=== PATIENT | female | born 1955 | race Caucasian/White ===

== ENCOUNTER 2016-05-05 10:01 | Observation (INO) ==
--- NOTE | 2016-05-05 10:03 | Emergency Department Note ---
Disposition Clinical Impression: Dehydration, Postural dizziness with near syncope Intractable vomiting with nausea Qualifiers: Vomiting type: unspecified Qualified Code(s): R11.2 - Nausea with vomiting, unspecified Left lower lobe pneumonia Qualifiers: Pneumonia type: due to unspecified organism Qualified Code(s): J18.1 - Lobar pneumonia, unspecified organism Disposition: Admitted As Inpatient Condition: Good Referrals: Kathy Horowitz, DISTRICT SALES LEADER [Primary Care Provider] - Forms: ED Satisfaction Letter Nausea/Vomiting/Diarrhea HPI - General Chief complaint: ED Nausea/Vomiting/Diarrhea Stated complaint: "can't keep nothing down" Time Seen by Provider: 05/05/16 10:08 Source: patient, family Mode of arrival: private vehicle Limitations: no limitations Nursing Notes Reviewed: Yes Vital Signs Reviewed: Yes - History of Present Illness HPI Narrative: The patient was initially seen May 01 for upper respiratory infection. She did have one episode of diarrhea and no nausea or vomiting. She had influenza swab that was negative and a chest x-ray demonstrating a possible left lower lobe infiltrate. She was started on Augmentin for infection and Bromfed. She was present with a family member who also has had respiratory infection who is placed on Augmentin and was having diarrhea. In the past few days patient has had persistent nausea, vomiting with subsequent weakness and dizziness. She has presented back to the ER by private auto and has been brought in to the department in a wheelchair. The patient specifically reports that she has had nausea and vomiting for about 3 days and has been bringing up water and bile. Denies any blood in emesis. She states she has not been able to tolerate significant oral intake or take her medicines. She denies diarrhea other than 1 episode today or 2 ago. She denies abdominal pain does report severe nausea. She states she is still having fevers, chills, cough with some shortness of breath. The cough is productive at this time. She denies any discomfort with urination. She denies that anybody else the family has had vomiting illness. She relates this morning she had to be helped suggesting a bathroom for fear of passing out and she therefore has been brought in for evaluation. She has not had any type of syncope or fall. Pt Subjective Complaint: nausea, vomiting Onset (ago): day(s) Description of emesis: food contents Description of Diarrhea: water Associated Abdominal Pain: No Severity: none Severity scale (1-10): 0 Worsens with: eating Context: sick contacts, recent antibiotic use Associated symptoms: Reports: cough, fever/chills, loss of appetite, malaise, nausea/vomiting, shortness of breath, weakness. Denies: myalgias, chest pain, diaphoresis, headaches, rash, dysuria, syncope - Related Data Home Medications Medication Instructions Recorded Confirmed Aspirin [Adult Low Dose Aspirin EC] 1 tab PO DAILY 03/13/15 05/01/16 Atenolol [Tenormin] 100 mg PO DAILY 03/13/15 05/01/16 Lovastatin [Mevacor] 20 mg PO HS 03/13/15 05/01/16 Metformin [Glucophage] 500 mg PO DAILY 03/13/15 05/01/16 Mirtazapine [Remeron] 15 mg PO HS 03/13/15 05/01/16 Quetiapine Fumarate [Seroquel] 100 mg PO QPM 03/13/15 05/01/16 Amlodipine Besylate 10 mg PO DAILY 01/02/16 05/01/16 Lovastatin 20 mg PO DAILY 01/02/16 05/01/16 Ranitidine HCl [Zantac] 150 mg PO BID 01/02/16 05/01/16 Previous Rx's Medication Instructions Recorded Lisinopril-HCTZ 20-12.5 [Prinzide 1 each PO DAILY 30 Days 03/14/15 20-12.5] Potassium Chloride 10 meq PO DAILY #30 tab.er.prt 03/14/15 Ciprofloxacin HCl [Cipro] 500 mg PO BID #14 tablet 01/02/16 Amoxicillin/Clavulanate [Augmentin] 875 mg PO BIDWM #20 tablet 05/01/16 D-Methorphan Hb/P-Epd HCl/Bpm 10 ml PO Q6-8H PRN #240 ml 05/01/16 [Bromfed Dm Cough Syrup] Allergies Allergy/AdvReac Type Severity Reaction Status Date / Time guaifenesin [From Mucinex] AdvReac Rash Verified 01/02/16 11:53 All systems ED: reviewed and negative except as stated. Past Medical History - Past Medical History Attestation: Yes The following information was validated with the patient. Source: patient, old records reviewed, nursing notes reviewed Medical history: Reports: arthritis, diabetes, fibromyalgia, GERD, hyperlipidemia, hypertension, other (Restless leg syndrome) Surgical history: Reports: appendectomy, cholecystectomy Psychiatric history: Reports: anxiety, depression QUANTITY SURVEYOR history: Reports: no QUANTITY SURVEYOR history - Social History Smoking Status: Never smoker Smokeless Tobacco Status: No Alcohol use: Reports: none Drug use: Reports: none Physical Exam - General Limitations: no limitations General appearance: alert, anxious - Head Head exam: atraumatic, normocephalic, normal inspection - Eye Eye exam: Present: normal appearance, PERRL, EOMI. Absent: scleral icterus, conjunctival injection - ENT ENT exam: normal exam, normal oropharynx, mucous membranes moist - Neck Neck exam: Present: normal inspection, full ROM, trachea midline - Chest Chest inspection: Present: normal inspection, symmetric chest wall rise. Absent : tenderness - Respiratory Respiratory exam: Present: normal lung sounds bilaterally. Absent: respiratory distress, wheezes, prolonged expiratory phase - Cardiovascular Cardiovascular exam: Present: regular rate, normal rhythm, normal heart sounds - Abdominal Exam Abdominal exam: Present: soft, Non-Tender, normal bowel sounds. Absent: tenderness, distention, guarding, rebound, rigidity - Extremities Exam Extremities exam: Present: normal inspection, full ROM, normal capillary refill. Absent: tenderness, pedal edema - Expanded Lower Extremity Exam Neurovascular/Tendon exam: Present: normal capillary refill. Absent: motor deficit, sensory deficit, tendon deficit Gait: not tested/not observed - Back Exam Back exam: Present: normal inspection, full ROM. Absent: tenderness, CVA tenderness (R), CVA tenderness (L) - Neurological Exam Neurological exam: Present: alert, oriented X3 - Psychiatric Psychiatric exam: Present: normal affect, anxious - Skin Skin exam: Present: warm, dry, intact, pallor. Absent: diaphoresis Course Course Narrative: 1100: There has been discussed with the patient and family. I subsequently contacted Dr. Ervin who is agreeable with observation of this patient to continue IV antiemetics, antibiotics and IV rehydration. Verbal orders were obtained for her admission. I have contacted to [facility] bed management for bed placement into bed 51. Vital Signs Temperature 98.8 F 05/05/16 10:06 Pulse Rate 79 05/05/16 10:06 Respiratory Rate 18 05/05/16 10:06 Blood Pressure 73/55 05/05/16 10:06 O2 Sat by Pulse Oximetry 99 05/05/16 10:06 Temperature 98.8 F 05/05/16 10:13 Pulse Rate 79 05/05/16 10:13 Respiratory Rate 18 05/05/16 10:13 Blood Pressure 73/55 05/05/16 10:13 O2 Sat by Pulse Oximetry 99 05/05/16 10:13 Oxygen Delivery Oxygen Delivery Room Air Nausea/Vomiting/Diarrhea - Differential Diagnosis Likely: food poisoning, gastroenteritis, dehydration - Medical Records Medical records reviewed: Yes I reviewed the patient's medical records. - Lab Data Lab results reviewed: Yes I reviewed the patient's lab results. Lab results narrative: The patient's 2 prior WBCs have been in the range of 3-4. The patient's usual creatinine is about 0.75. Result diagrams: 05/05/16 10:30 05/05/16 10:30 Lab Results 05/05/16 05/05/16 Range/Units 10:30 10:30 WBC 2.9 L (4.3-11.1) K/mcL RBC 4.81 (3.82-4.97) M/mcL Hgb 13.4 (11.5-15.4) g/dL Hct 39.9 (35.3-44.9) % MCV 83.0 (83.0-100.0) fL MCH 27.9 L (28.0-33.3) pg MCHC 33.6 (31.6-35.5) g/dL RDW 14.2 (11.5-14.5) % Plt Count 204 (140-400) K/mcL MPV 10.0 (9.4-12.4) fL Immature Gran % 0.0 (0-4) % Seg Neutrophils % 65.5 % Lymphocytes % 22.1 % Monocytes % 12.1 % Eosinophils % 0.0 % Basophils % 0.3 % Neutrophils # 1.9 (1.6-8.9) K/mcL Lymphocytes # 0.6 (0.6-4.6) K/mcL Monocytes # 0.4 (0.0-1.3) K/mcL Eosinophils # 0.0 (0.0-0.6) K/mcL Basophils # 0.0 (0.0-0.2) K/mcL Sodium 131 L (136-145) mEq/L Potassium 3.7 (3.5-4.5) mEq/L Chloride 96 L (98-109) mEq/L Carbon Dioxide 21 (19-29) mEq/L BUN 12 (7-20) mg/dL Creatinine 1.20 H (0.57-1.11) mg/dL Est GFR ( Amer) 55 L (> 60) Est GFR (Non-Af Amer) 46 L (> 60) BUN/Creatinine Ratio 10 (6-26) Glucose 156 H (70-99) mg/dL Calculated Osmolality 275 L (280-300) Calcium 9.1 (8.6-10.8) mg/dL - Radiology Data Radiology results reviewed: Yes I reviewed the patient's radiology results. Single view chest x-ray is performed. This does not demonstrate evidence for infiltrate, effusion, pneumothorax, foreign body or heart failure. The cardiac silhouette is normal. I do not see abnormality to the osseous structures of the chest. This is on my interpretation. Impressions Chest X-Ray 05/05/16 10:12 IMPRESSION: Minimal streaky left basilar opacity may relate to atelectasis or infiltrate. D/ / 05/05/2016 10:37:52 Alden Mandel MD / [email or web address] Interpreting Provider: Alden Mandel MD
[2016-05-05] MEDS ORDERED: Ondansetron 4 MG/2 ML VIAL IVP ONE (10:12)
[2016-05-05] MEDS ORDERED: 0.9 % Sodium Chloride 1,000 ML IVC ONE (10:12)
[2016-05-05 10:40] LABS: Basophils % 0.3 %; Hematocrit 39.9 % (35.3-44.9); Hemoglobin 13.4 g/dL (11.5-15.4); Lymphocytes # 0.6 K/mcL (0.6-4.6); Lymphocytes % 22.1 %; Mean Corpuscular HGB Conc 33.6 g/dL (31.6-35.5); Mean Corpuscular Hemoglobin 27.9 pg (28.0-33.3); Monocytes # 0.4 K/mcL (0.0-1.3); Monocytes % 12.1 %; Neutrophils # 1.9 K/mcL (1.6-8.9); Platelet Count 204 K/mcL (140-400); Red Blood Count 4.81 M/mcL (3.82-4.97); Red Cell Distribution Width 14.2 % (11.5-14.5); Segmented Neutrophils % 65.5 %
[2016-05-05] MEDS ORDERED: Levofloxacin 750 MG/150 ML 750 MG/150 ML BAG IVPB SCH ×2 (10:45→12:00)
[2016-05-05 10:55] LABS: Calcium 9.1 mg/dL (8.6-10.8); Potassium 3.7 mEq/L (3.5-4.5)
[2016-05-05] MEDS ORDERED: 0.9 % Sodium Chloride 1,000 ML IVC SCH (11:31)
[2016-05-05] MEDS ORDERED: Naloxone 0.4 MG/ML INJ IVP PRN (11:31)
[2016-05-05] MEDS ORDERED: Albuterol 2.5 MG/3 ML NEBULIZER IH PRN (11:31)
[2016-05-05] MEDS ORDERED: Ondansetron 4 MG/2 ML VIAL IVP PRN ×2 (11:31→17:04)
[2016-05-05] MEDS ORDERED: Acetaminophen 325 MG TABLET PO PRN (11:31)
[2016-05-05] MEDS: Mag Hydrox/Al Hydrox/Simeth 30 ML UDC PO PRN ×2 (15:18→22:14)
[2016-05-05] MEDS ORDERED: Ipratropium/Albuterol Neb 3 ML IH SCH (16:00)
--- NOTE | 2016-05-05 16:53 | Internal Med History&Physical ---
Date of Encounter: 05/05/16 Time of Encounter: 16:15 Assessment and Plan (1) Left lower lobe pneumonia Current visit: Yes Status: Acute We will order chest CT to further evaluate. We will also order pro-calcitonin level. Continue IV Levaquin. Add lactobacillus. Qualifiers: Pneumonia type: due to unspecified organism Qualified Code(s): J18.1 - Lobar pneumonia, unspecified organism (2) Azotemia Current visit: Yes Status: Acute Give IV fluids and recheck labs in a.m. (3) Intractable vomiting with nausea Current visit: Yes Status: Acute Suspect viral gastroenteritis. We will give IV fluids and prn anti-emetics. Qualifiers: Vomiting type: unspecified Qualified Code(s): R11.2 - Nausea with vomiting , unspecified Internal Medicine - H&P: HPI Chief complaint: Vomiting and diarrhea Admitted From: Home Plans for Post Hospital Care: Home History of present illness: Ms. Braswell is a 60 year old female who came to emergency room stating she had multiple episodes of vomiting over the past 2 days. She began to feel lightheaded and dizzy. She reports diarrhea has also been present for 2 days but seemed to have lessened the evening of May 04. She denied melena hematochezia hematemesis or abdominal pain. She was evaluated in emergency room and found to have hypotension. She responded to IV fluids and stabilized. She was admitted to [facility] floor for ongoing care needs. Her GI history is pertinent for GERD symptoms in the past but these are generally well controlled on medication. She denies disorders of her liver or exocrine pancreas. She has had cholecystectomy. Past Med Surg Social Fam HX - Past Medical History Medical history: arthritis, diabetes, fibromyalgia, GERD, hyperlipidemia, hypertension, other Psychiatric history: anxiety, depression - Past Surgical History Surgical History: appendectomy, cholecystectomy - Social History Smoking Status: Never smoker Smokeless Tobacco Status: No Alcohol use: none Drug use: none - Family History Father Adopted: No Living Status: Hx Family Cardiac Disorders: Yes Hx Family Respiratory Disorders: No Hx Family Cancer: Yes Hx Family GI Disorders: No Hx Family Endocrine Disorder: No Hx Family Neuromuscular Disorders: No Hx Family Neurologic Disorders: No Hx Family HEENT Disorders: No Hx Family Autoimmune Disorders: No Internal Medicine - H&P: Meds Aspirin [Adult Low Dose Aspirin EC] 1 tab PO DAILY 03/13/15 [History] Atenolol [Tenormin] 100 mg PO DAILY 03/13/15 [History] Lovastatin [Mevacor] 20 mg PO HS 03/13/15 [History] Metformin [Glucophage] 500 mg PO DAILY 03/13/15 [History] Mirtazapine [Remeron] 15 mg PO HS 03/13/15 [History] Quetiapine Fumarate [Seroquel] 100 mg PO QPM 03/13/15 [History] Lisinopril-HCTZ 20-12.5 [Prinzide 20-12.5] 1 each PO DAILY 30 Days 03/14/15 [Rx] Potassium Chloride 10 meq PO DAILY #30 tab.er.prt 03/14/15 [Rx] Ciprofloxacin HCl [Cipro] 500 mg PO BID #14 tablet 01/02/16 [Rx] Lovastatin 20 mg PO DAILY 01/02/16 [History] Ranitidine HCl [Zantac] 150 mg PO BID 01/02/16 [History] Amoxicillin/Clavulanate [Augmentin] 875 mg PO BIDWM #20 tablet 05/01/16 [Rx] Allergies guaifenesin [From Mucinex] Adverse Reaction (Verified 01/02/16 11:53) Rash All Systems PM: A 10-system review of systems was performed and is negative for pertinent findings except as documented above in the HPI. Review of systems: Gen.: Her weight has increased from 67.912 kg on 03/14/2015 to 83.461 kg at present Cardiovascular: She has a history of hypertension but denies CA heart failure angina DVT or pulmonary embolus. She thinks she had an exercise stress test approximately 15-20 years ago. She denies other cardiac studies. Respiratory: She is a lifelong nonsmoker and has no known chronic lung disease GI: As per history of present illness : She denies hematuria dysuria or kidney stones Neurologic: She was hospitalized approximately one year ago at [facility] with syncope. She has had no further episodes. She denies large distribution strokes or seizures. Endocrine: She has been diagnosed with DM 2. Hemoglobin A1c was 6.4% on 2013. She has hyperlipidemia but no known thyroid disease Hematology/oncology: She denies blood disorders cancers or anemia Psychiatric: She has anxiety and depression and follows at mental health clinic. She denies other psychiatric diagnosis. Musk skeletal: She has occasional pain in her arms. No significant DJD or gout or other bone joint or muscle problems. - Constitutional Vitals: Temp Pulse Resp BP Pulse Ox 98.2 F 74 16 128/78 98 05/05/16 14:51 05/05/16 14:51 05/05/16 14:51 05/05/16 14:51 05/05/16 14:51 Exam: Gen.: She is a well-developed well-nourished female resting in bed who appears in minimal distress at present time. HEENT: Head is atraumatic and normocephalic. Eyes: EOMI. There is no scleral icterus. Mouth: Mucosa is moist. Neck: Supple and nontender. There is no thyromegaly or adenopathy noted. Heart: Regular without murmurs gallops or ectopics. Lungs: No wheezes or crackles are heard. Abdomen: Bowel sounds are present. Abdomen is nontender to palpation. No masses or guarding are noted. Extremities: There is no cyanosis edema or clubbing noted. Dorsalis pedis and posttibial pulses are 1-2 over 2 bilaterally. Neurologic: Mental status: She is talkative and a good historian. Cranial nerves: Smile is symmetric. Forehead wrinkles bilaterally. Tongue protrudes midline. EOMI. Motor: There is no pronator drift. Cerebellar: Finger to nose is intact bilaterally. Skin: Warm and dry Internal Med - H&P Results - Labs CBC & Chem 7: 05/05/16 10:30 05/05/16 10:30
[2016-05-05] MEDS ORDERED: *HR* Promethazine 25 MG/ML VIAL IVP PRN (17:01)
[2016-05-05] MEDS: Lactobacillus 1 EACH CAP.SPRINK PO SCH (22:14)
[2016-05-06 05:54] LABS: Basophils % 0.3 %; Hematocrit 35.7 % (35.3-44.9); Hemoglobin 11.7 g/dL (11.5-15.4); Lymphocytes % 32.8 %; Mean Corpuscular HGB Conc 32.8 g/dL (31.6-35.5); Mean Corpuscular Hemoglobin 27.5 pg (28.0-33.3); Mean Platelet Volume 10.2 fL (9.4-12.4); Monocytes # 0.5 K/mcL (0.0-1.3); Monocytes % 17.1 %; Neutrophils # 1.4 K/mcL (1.6-8.9); Platelet Count 197 K/mcL (140-400); Red Blood Count 4.25 M/mcL (3.82-4.97); Red Cell Distribution Width 14.6 % (11.5-14.5); Segmented Neutrophils % 49.8 %
[2016-05-06 06:17] LABS: Alanine Aminotransferase 19 Units/L (0-55); Albumin 3.5 g/dL (3.5-5.0); Albumin/Globulin Ratio 1.3 (1.1-2.2); Alkaline Phosphatase 31 Units/L (38-126); Aspartate Amino Transferase 22 Units/L (5-34); BUN/Creatinine Ratio 10 (6-26); Bilirubin,Total 0.2 mg/dL (0.2-1.2); Blood Urea Nitrogen 8 mg/dL (7-20); Carbon Dioxide 23 mEq/L (19-29); Chloride 104 mEq/L (98-109); Globulin 2.6 g/dL (2.4-3.5); Glucose 103 mg/dL (70-99); Magnesium 2.2 mg/dL (1.6-2.6); Osmolality,Calculated 279 (280-300); Potassium 3.8 mEq/L (3.5-4.5); Sodium 135 mEq/L (136-145); Total Protein 6.1 g/dL (6.0-8.3); eGFR For African Americans > 60 (> 60); eGFR For Non-African Americans > 60 (> 60)
[2016-05-06] MEDS ORDERED: Pantoprazole 40 MG VIAL IVP SCH (09:00)
[2016-05-06] MEDS: Lactobacillus 1 EACH CAP.SPRINK PO SCH (09:05)
--- NOTE | 2016-05-06 10:06 | Internal Med Progress Note ---
Date of Encounter: 05/06/16 Time of Encounter: 09:55 - Assessment and plan (1) Left lower lobe pneumonia Current Visit: Yes Status: Acute Assessment and plan: May 06. Chest CT showed no evidence of pneumonia. We will discontinue antibiotics and lactobacillus. Qualifiers: Pneumonia type: due to unspecified organism Qualified Code(s): J18.1 - Lobar pneumonia, unspecified organism (2) Azotemia Current Visit: Yes Status: Acute Assessment and plan: May 06. Resolved. We will discontinue IV fluids. (3) Intractable vomiting with nausea Current Visit: Yes Status: Acute Assessment and plan: May 06. Probable viral gastroenteritis. Improved now. Anticipate discharge home tomorrow if stable. Qualifiers: Vomiting type: unspecified Qualified Code(s): R11.2 - Nausea with vomiting , unspecified - Subjective Interval history: May 06. She has no new complaints and states her vomiting has lessened. - Constitutional Vitals: Temp Pulse Resp BP Pulse Ox 99.2 F 73 17 126/83 95 05/06/16 07:16 05/06/16 07:16 05/06/16 07:16 05/06/16 07:16 05/06/16 07:16 Exam: She is resting comfortably in bed. Her affect is bright and cheerful. I reviewed her medications and lab results and CT report. Internal Medicine: Result - Labs CBC & Chem 7: 05/06/16 05:18 05/06/16 05:18 Labs: Short CBC 05/06/16 Range/Units 05:18 WBC 2.9 L (4.3-11.1) K/mcL Hgb 11.7 D (11.5-15.4) g/dL Hct 35.7 (35.3-44.9) % Plt Count 197 (140-400) K/mcL Neutrophils # 1.4 L (1.6-8.9) K/mcL BMP 05/06/16 05:18 Sodium 135 L Potassium 3.8 Chloride 104 Carbon Dioxide 23 BUN 8 Creatinine 0.80 Glucose 103 H Calcium 8.0 L Liver Function 05/06/16 Range/Units 05:18 Total Bilirubin 0.2 (0.2-1.2) mg/dL AST 22 (5-34) Units/L ALT 19 (0-55) Units/L Alkaline Phosphatase 31 L (38-126) Units/L Albumin 3.5 (3.5-5.0) g/dL - Impressions Impressions Chest CT 05/05/16 17:01 IMPRESSION: No acute process within the chest. No pneumonia is appreciated. D/ / 05/05/2016 19:39:26 Shiraz Kirkland MD / mili Interpreting Provider: Shiraz Kirkland MD - VTE Documentation of Mechanical Device: Graduated compression elastic hosiery Consult Discharge Plan - Plan Referrals: Kathy Horowitz, TRACK SUPERVISOR [Primary Care Provider] - 1 week
[2016-05-06] MEDS: Lisinopril 20 MG TABLET PO SCH (18:32)
[2016-05-07 05:28] LABS: Basophils % 0.4 %; Hematocrit 37.8 % (35.3-44.9); Hemoglobin 12.3 g/dL (11.5-15.4); Immature Granulocytes % 0.4 % (0-4); Lymphocytes # 0.9 K/mcL (0.6-4.6); Lymphocytes % 35.1 %; Mean Corpuscular HGB Conc 32.5 g/dL (31.6-35.5); Mean Corpuscular Hemoglobin 27.4 pg (28.0-33.3); Mean Corpuscular Volume 84.2 fL (83.0-100.0); Mean Platelet Volume 10.1 fL (9.4-12.4); Monocytes # 0.4 K/mcL (0.0-1.3); Monocytes % 15.8 %; Neutrophils # 1.3 K/mcL (1.6-8.9); Platelet Count 193 K/mcL (140-400); Red Blood Count 4.49 M/mcL (3.82-4.97); Red Cell Distribution Width 14.4 % (11.5-14.5); Segmented Neutrophils % 48.3 %
[2016-05-07 05:46] LABS: BUN/Creatinine Ratio 9 (6-26); Blood Urea Nitrogen 7 mg/dL (7-20); Calcium 8.5 mg/dL (8.6-10.8); Carbon Dioxide 23 mEq/L (19-29); Chloride 102 mEq/L (98-109); Glucose 133 mg/dL (70-99); Osmolality,Calculated 280 (280-300); Potassium 3.9 mEq/L (3.5-4.5); Sodium 135 mEq/L (136-145); eGFR For African Americans > 60 (> 60); eGFR For Non-African Americans > 60 (> 60)
[2016-05-07 06:57] VITALS: BP 162/95
[2016-05-07] MEDS: Lisinopril 20 MG TABLET PO SCH (07:34)
--- NOTE | 2016-05-07 10:07 | Discharge Summary ---
Date of Encounter: 05/07/16 Time of Encounter: 09:55 - Discharge Diagnosis (1) Acute bronchitis Priority: Primary Status: Acute Qualifiers: Bronchitis organism: unspecified organism Qualified Code(s): J20.9 - Acute bronchitis, unspecified (2) Azotemia Priority: Secondary Status: Resolved (3) Intractable vomiting with nausea Priority: Secondary Status: Resolved Qualifiers: Vomiting type: unspecified Qualified Code(s): R11.2 - Nausea with vomiting , unspecified - Discharge Medications Prescriptions: Lisinopril [Zestril] 40 mg PO DAILY #30 tablet Home Medications: Aspirin [Adult Low Dose Aspirin EC] 1 tab PO DAILY 03/13/15 [History] Atenolol [Tenormin] 100 mg PO DAILY 03/13/15 [History] Lovastatin [Mevacor] 20 mg PO HS 03/13/15 [History] Metformin [Glucophage] 500 mg PO DAILY 03/13/15 [History] Mirtazapine [Remeron] 15 mg PO HS 03/13/15 [History] Quetiapine Fumarate [Seroquel] 100 mg PO QPM 03/13/15 [History] Lovastatin 20 mg PO DAILY 01/02/16 [History] Lisinopril [Zestril] 40 mg PO DAILY #30 tablet 05/07/16 [Rx] Ranitidine HCl [Zantac] 150 mg PO BID PRN #0 05/07/16 [Rx] Allergies/Adverse Reactions: Allergies No Known Allergies Allergy (Verified 05/07/16 02:42) Procedures/tests Complete & Pending: Procedures Performed prior 72 hours Category Date Time Status CT chest wo con [CT] Routine Cat Scan 05/05/16 17:01 Completed Date of admission: 05/05/16 11:12 Primary care physician: Kathy Horowitz CNP - Patient Status Disposition: Home, Self-Care Condition: Good Overall status at discharge: patient is progressing back to baseline - Discharge Instructions Follow Up With: Kathy Horowitz CNP [Primary Care Provider] - 1 week - Diet and Activity Activity: resume usual activities as tolerated Diet: advance to your usual diet Hospital course: Ms. Braswell is a 60 year old female who came to emergency room stating she had multiple episodes of vomiting over the past 2 days. She began to feel lightheaded and dizzy. She reports diarrhea has also been present for 2 days but seemed to have lessened the evening of May 04. She denied melena hematochezia hematemesis or abdominal pain. She was evaluated in emergency room and found to have hypotension. She responded to IV fluids and stabilized. She was admitted to [facility] for ongoing care needs. Initial orders written by the emergency room physician. I saw her on May 05 and performed history and physical. Initially given IV Levaquin emergency room for possible pneumonia. I ordered a chest CT to further evaluate there is no evidence of infiltrate seen. I do not feel she had bacterial infection and discontinued antibiotics. Her vomiting resolved during her hospital stay. I felt she likely had viral gastroenteritis as well as a viral bronchitis. Her azotemia resolved with IV fluids. Her Prinzide was discontinued because of the azotemia. She will be placed on [ higher dose] lisinopril and continue atenolol at home. On May 07 she was stable for discharge home. She will follow with her PCP Kathy Horowitz CNP within 1 week. - Time Spent with Patient Total time spent providing and/or coordinating discharge services: - Constitutional Vitals: Temp Pulse Resp BP Pulse Ox 98.4 F 75 16 162/95 94 L 05/07/16 06:56 05/07/16 06:56 05/07/16 06:56 05/07/16 06:56 05/07/16 06:56 - VTE Documentation of Mechanical Device: Graduated compression elastic hosiery
== END 2016-05-07 12:05 | disposition home or self-care (01) ==
LOC: INPPIK 10:01 → EMEROOPIK 10:01 → INPPIK 12:00
PROVIDERS: ADMIT Internal Medicine; ATTEND Internal Medicine